=== PATIENT | female | born 1925 | race Caucasian/White ===

== ENCOUNTER → 2017-03-17 | Outpatient (CLI) | payer MEDICARE, OTHER ==
[~2017-03-17] MED LIST: ATOR10TA65 PO; DILT240C79 PO; FURO40TA4 PO; HYDR-3498 PO; MAGN400T28 PO; METF500T4 PO; PIOG15TA21 PO; POTA20TA96 PO; RIVA15TA PO
--- NOTE | 2017-03-17 17:47 | RADRPT ---
PROCEDURE: US Right lower extremity veins. CLINICAL INDICATION: Right leg pain and swelling. TECHNIQUE: Multiple longitudinal and transverse images of the right lower extremity veins were obt ained with pineda scale and color Doppler imaging. 2D grayscale measurements with compression, color Doppler flow, and augmentation was performed. The calf veins were not evaluated. COMPARISON: 10/15/2015. FINDINGS: The right common femoral, femoral and popliteal veins are normally compressible throughout. Color f low demonstrates normal filling of the vessels. Normal waveforms are visualized and there is normal response to augmentation. There is a right popliteal fossa Jordan's cyst measuring 5.1 x 1.6 x 3.5 cm. IMPRESSION: 1. No evidence of deep vein thrombosis involving the right lower extremity. RPTAT: QQ .Josh Keene MD, Date Time Electronically viewed and signed by .Josh Keene MD, on 03/17/2017 17:47 .R/
== END | disposition home or self-care (01) ==
LOC: VAS 16:43
PROVIDERS: ATTEND Internal Medicine
DX: M25.561 Pain in right knee (principal); R60.0 Localized edema
CPT/HCPCS: 93971

== ENCOUNTER 2017-04-13 10:15 | Emergency (ER) | payer MEDICARE, OTHER ==
[~2017-04-13] VITALS: Ht 157.5 cm; Wt 66.0 kg
[2017-04-13 10:28] VITALS: Ht 157.5 cm; Wt 66.0 kg
[2017-04-13] MEDS ORDERED: KETOROLAC 15 MG INJ IV STA (11:50)
[2017-04-13 12:29] LABS: BASOPHILS % 0.2 % (0.0-2.0); EOSINOPHILS # 0.1 10^3/ul (0.0-0.5); EOSINOPHILS % 1.9 % (0.0-7.0); HEMATOCRIT 38.3 % (37.0-47.0); HEMOGLOBIN 12.8 g/dl (12.0-16.0); LYMPHOCYTES # 2.1 10^3/ul (0.8-2.9); LYMPHOCYTES % 39.8 % (15.0-51.0); MEAN CORPUSCULAR HEMOGLOBIN 30.5 pg (29.0-33.0); MEAN CORPUSCULAR HGB CONC 33.4 g/dl (32.0-37.0); MEAN CORPUSCULAR VOLUME 91.4 fl (82.0-101.0); MEAN PLATELET VOLUME 9.4 fl (7.4-10.4); MONOCYTE # 0.4 10^3/ul (0.3-0.9); MONOCYTES % 7.7 % (0.0-11.0); NEUTROPHIL # 2.6 10^3/ul (1.6-7.5); NEUTROPHILS % 49.8 % (39.0-77.0); PLATELET COUNT 306 10^3/UL (140-415); RED BLOOD COUNT 4.19 10^6/ul (4.20-5.40); RED CELL DISTRIBUTION WIDTH 12.5 % (11.5-14.5); WHITE BLOOD COUNT 5.2 10^3/ul (4.8-10.8)
[2017-04-13] MEDS ORDERED: DILT120T PO (12:44)
[2017-04-13 12:51] LABS: CALCIUM 10.7 mg/dl (8.4-10.2); CREATININE 1.36 mg/dl (0.44-1.00); POTASSIUM 4.7 mmol/L (3.5-5.1)
--- NOTE | 2017-04-13 13:39 | RADRPT ---
PROCEDURE: CT ABDOMEN AND PELVIS WITHOUT CONTRAST. CLINICAL INDICATION: Left flank pain TECHNIQUE: CT scan of the abdomen and pelvis without contrast was performed on a multidetector hig h-resolution CT scanner. The patient was scanned without intravenous contrast. Coronal and sagittal reformatted images were obtained from the axial source images. Images were reviewed on a high-resol [employer] PACS workstation. The total exam CTDI equals 11.5 mGy and the total exam DLP equals 648 mGy-cm . One or more of the following dose reduction techniques were used: Automated exposure control. Adjustment of the mA and/or kV according to patient size. Use of iterative reconstruction technique. DICOM images are available COMPARISON: None FINDINGS: CT abdomen: Lung bases are clear. Heart size is enlarged. There is mild pericardial effusion. Hepatic morphology is within limits. No gross contour deforming masses. Gallbladder is mildly disten ded. No evidence of intrahepatic or extrahepatic biliary dilatation. The spleen is unremarkable. Pancreas is within normal limits. Dense atherosclerotic calcification of peripancreatic vessels are noted. Both adrenal glands are within normal limits. Both kidneys are visualized. There is a large left-sided renal cyst, measuring up to 4.0 cm. No corey s renal/ureteric calculi. No evidence of obstruction hydronephrosis. The visualized GI tract demonstrates a small hiatal hernia. Normal caliber loops of small and large bowel noted. There is a small fat-containing umbilical hernia. The appendix is within normal limits. Diffuse atherosclerotic calcification of the aorta and generalized ectasia is noted. There is no sig nificant retroperitoneal lymphadenopathy. CT pelvis: Bladder is distended. There are small fat-containing bilateral inguinal hernias. The uterus is atrop hic and calcified. Rectosigmoid colon demonstrate diverticulosis. No significant free fluid. No sign ificant pelvic lymphadenopathy. The visualized osseous structures demonstrate multilevel degenerative disease of the spine. There is endplate sclerotic changes at the level L2-L3 and L5-S1. Bilateral facet arthropathy is noted. IMPRESSION: 1. No gross renal/ureteric calculi. No evidence of obstruction or hydronephrosis. There is a large 4 .0 cm left-sided renal cyst. 2. Small hiatal hernia. No evidence of bowel obstruction. Stool filled loops of large bowel suggesti ve of constipation. The appendix is within limits. 3. Small fat-containing umbilical hernia. Small fat-containing bilateral inguinal hernias. 4. No free fluid or free air. No gross focal fluid collections. 5. Multilevel degenerative disease of lumbosacral spine. RPTAT: AAPP Rose Mccoy Physician Date Time Electronically viewed and signed by Rose Mccoy Physician on 04/13/2017 13:38 JL/
[2017-04-13 13:48] LABS: URINE BLOOD (Dip) POC Negative (NEGATIVE)
[2017-04-13] MEDS ORDERED: NITROFURANTOIN (SR) 100 MG CAP PO ONE (14:00)
--- NOTE | 2017-04-13 14:01 | ERD ---
ER Documentation Chief Complaint Chief Complaint LEFT SIDE HIP PAIN SPONATENOUS ORIGIN NO TRAUMA HPI This is an 89-year-old female presents to the ER for evaluation of left-sided back pain and hip pain. The patient has had this pain for the past 48 hours. She denies any trauma to the area. She states that she does have pain is sometimes shoots down the back of her leg. She denies any fevers or chills, came to the emergency room for evaluation of her symptoms. Majority history is obtained in this patient's daughter who is the patient's primary caregiver. She has been given the patient 600 mg of Motrin once a day with only minimal relief. The patient was brought to the ER for further evaluation of her symptoms. She denies any urinary incontinence or urinary retention ROS All systems reviewed and are negative except as per history of present illness. Medications Home Meds Reported Medications Diltiazem Hcl* (Cardizem LA*) 120 Mg Tab.sr.24h, 120 MG PO DAILY, #30 TAB.SA 04/13/17 Magnesium Oxide* (Magnesium Oxide*) 400 Mg Tablet, 1600 MG PO DAILY, TAB 05/23/14 Furosemide* (Furosemide*) 40 Mg Tablet, 40 MG PO DAILY, TAB 05/23/14 Rivaroxaban* (Xarelto*) 15 Mg Tablet, 15 MG PO DAILY, TAB 05/23/14 Hydrocodone Bit-Acetaminophen* ([place]*) 5-325 Mg Tab, 1 TAB PO DAILY Y for PAIN , TAB 05/23/14 Metformin* (Glucophage*) 500 Mg Tab, 500 MG PO DAILY 10/13/10 Discontinued Reported Medications Pioglitazone Hcl* (Pioglitazone Hcl*) 15 Mg Tablet, 15 MG PO QAM, TAB 05/23/14 Atorvastatin Calcium (Atorvastatin Calcium) 10 Mg Tab, 10 MG PO HS, TAB 05/23/14 Diltiazem Hcl* (Cardizem CD*) 240 Mg Cap.sr.24h, 240 MG PO QAM, CAP 05/23/14 Potassium Chloride* (Potassium Chloride*) 20 Meq Tablet.er, 20 MEQ PO DAILY, TAB.SA 05/23/14 Allergies Allergies: Coded Allergies: morphine (Verified Adverse Reaction, Severe, 05/23/14) PMhx/Soc History of Surgery: No Anesthesia Reaction: No Hx Neurological Disorder: No Hx Respiratory Disorders: No Hx Cardiac Disorders: No Hx Psychiatric Problems: No Hx Miscellaneous Medical Probl: Yes (dvt's) Hx Alcohol Use: No Hx Substance Use: No Hx Tobacco Use: No Smoking Status: Never smoker Physical Exam Vitals Vital Signs Date Time Temp Pulse Resp B/P Pulse Ox O2 Delivery O2 Flow Rate FiO2 04/13/17 10:28 97.2 93 19 157/82 100 Physical Exam INITIAL VITAL SIGNS: Reviewed by me GENERAL: The patient is well developed and appropriate for usual state of health in no apparent distress HEENT: Pupils equal, round, and reactive to light. EOMI. There is no scleral icterus. NECK: C-spine is soft and supple, there is no meningismus. There is no cervical lymphadenopathy. LUNGS: Clear to auscultation bilaterally. There are no rales, wheezes or rhonchi. HEART: Regular rate and rhythm, no murmurs, clicks, rubs or gallops. ABDOMEN: Soft, non-tender, non-distended. There are bowel sounds in all four quadrants. No rebound or guarding. EXTREMITIES: Positive straight leg raise at 20 on the left, there is no peripheral cyanosis or edema. No focal swelling or erythema. NEUROLOGICAL: The patient moves all four extremities with 5/5 strength. Cranial nerves II - XII are intact. Normal gait. Alert and oriented SKIN: There is no apparent rash or petechiae. HEME/LYMPHATIC: There is no evidence of excessive bruising or lymphedema. PSYCHIATRIC: The patient does not appear anxious or depressed. Result Diagram: 04/13/17 1215 04/13/17 1215 Results 24 hrs Laboratory Tests Test 04/13/17 12:15 04/13/17 13:47 White Blood Count 5.210^3/ul Red Blood Count 4.1910^6/ul Hemoglobin 12.8g/dl Hematocrit 38.3% Mean Corpuscular Volume 91.4fl Mean Corpuscular Hemoglobin 30.5pg Mean Corpuscular Hemoglobin Concent 33.4g/dl Red Cell Distribution Width 12.5% Platelet Count 49870^3/UL Mean Platelet Volume 9.4fl Neutrophils % 49.8% Lymphocytes % 39.8% Monocytes % 7.7% Eosinophils % 1.9% Basophils % 0.2% Nucleated Red Blood Cells % 0.0/100WBC Neutrophils # 2.610^3/ul Lymphocytes # 2.110^3/ul Monocytes # 0.410^3/ul Eosinophils # 0.110^3/ul Basophils # 0.010^3/ul Nucleated Red Blood Cells # 0.010^3/ul Sodium Level 145mmol/L Potassium Level 4.7mmol/L Chloride Level 103mmol/L Carbon Dioxide Level 30mmol/L Anion Gap 17 Blood Urea Nitrogen 25mg/dl Creatinine 1.36mg/dl Glucose Level 153mg/dl Calcium Level 10.7mg/dl Bedside Urine pH (LAB) 5.5 Bedside Urine Protein (LAB) Negative Bedside Urine Glucose (UA) Negative Bedside Urine Ketones (LAB) Negative Bedside Urine Blood Negative Bedside Urine Nitrite (LAB) Negative Bedside Urine Leukocyte Esterase (L Trace Current Medications Medications (Trade) Dose Ordered Sig/Stephanie Route PRN Reason Start Time Stop Time Status Last Admin Dose Admin Ketorolac Tromethamine (Toradol) 15 mg ONCE STAT IV 04/13/17 11:50 04/13/17 11:51 DC 04/13/17 12:16 Nitrofurantoin Macrocrystals (Macrobid) 100 mg ONCE ONCE PO 04/13/17 14:00 04/13/17 14:01 DC Procedures/MDM CT abdomen pelvis without: 1. No gross renal/ureteric calculi. No evidence of obstruction or hydronephrosis. There is a large 4.0 cm left-sided renal cyst. 2. Small hiatal hernia. No evidence of bowel obstruction. Stool filled loops of large bowel suggestive of constipation. The appendix is within limits. 3. Small fat-containing umbilical hernia. Small fat-containing bilateral inguinal hernias. 4. No free fluid or free air. No gross focal fluid collections. 5. Multilevel degenerative disease of lumbosacral spine. This 89-year-old female presents to the ER for evaluation of left-sided lower back pain and flank pain. On examination she was afebrile, she did have a positive straight leg raise. Urinalysis was obtained which does show small amount of leukocyte esterase. She was given Macrobid in the emergency room. She likely is suffering from sciatica however she could have a superimposed component of cystitis. She will be discharged at this time with a prescription for Macrobid, and Motrin. The patient has no new signs of urinary incontinence or urinary retention. I have a low suspicion at this time for cauda equina. She is afebrile and nontoxic appearing and ambulating ER without difficulty. Departure Diagnosis: Primary Impression: Acute cystitis Additional Impressions: Sciatica Sciatica of left side Condition: Stable FEDE JONES DO Apr 13, 2017 14:01
[2017-04-13] MEDS ORDERED: NITR-58 PO (14:08)
[2017-04-13] MEDS ORDERED: IBUP800T25 PO (14:08)
[2017-04-13 14:35] VITALS: BP 140/85; PULSE 75; RESP 17
== END 2017-04-13 14:37 | disposition home or self-care (01) ==
LOC: E/R 10:15
DX: N30.00 Acute cystitis without hematuria (principal); M54.42 Lumbago with sciatica, left side
CPT/HCPCS: 74176; 80048; 81003; 85025; 96374; 99285; J1885